=== PATIENT | female | born 1950 | race Caucasian/White ===

== ENCOUNTER 2024-01-06 08:31 | Outpatient (CLI) | payer MEDICARE, SELFPAY ==
--- NOTE | ~2024-01-06 | US_ITS ---
EXAMINATION: US aorta [facility] scrn DATE: 01/06/2024 08:59 INDICATION: Abdominal aortic aneurysm screening with family member with aortic aneurysm TECHNIQUE: Grayscale, color Doppler, and pulsed Doppler images of the aorta and common iliac arteries were obtained. COMPARISON: None. FINDINGS: The proximal aorta measures 2.3 cm in AP diameter. The mid aorta measures 2.3 cm in AP diameter. The distal aorta measures 1.8 cm in AP diameter. The right common iliac artery measures 1.2 cm. The left common iliac artery measures 1.2 cm. IMPRESSION: 1. Normal abdominal aorta Reviewed, dictated and finalized at location A. IMPRESSION: 1. Normal abdominal aorta
== END 2024-01-06 08:32 | disposition home or self-care (01) ==
LOC: CHSIMG 08:35
PROVIDERS: PCP Family Medicine; Visit Provider Registered Nurse
DX: Z13.6 Encounter for screening for cardiovascular disorders (principal)
CPT/HCPCS: 76706